=== PATIENT | male | born 2000 | race Two or more races ===

== ENCOUNTER 2022-08-23 06:53 | Emergency (ER) | payer OTHER ==
[~2022-08-23] VITALS: Ht 170.2 cm; Wt 73.5 kg
[2022-08-23 07:43] VITALS: BP 103/78
[2022-08-23] MEDS ORDERED: ERY05OO OP (07:54)
== END 2022-08-23 07:59 | disposition home or self-care (01) ==
LOC: ER 06:53
DX: H00.013 Hordeolum externum right eye, unspecified eyelid (principal)